=== PATIENT | female | born 1960 | race Caucasian/White ===

== ENCOUNTER 2022-02-16 12:27 | Outpatient (CLI) | payer BC | END 2022-02-16 12:28 | disposition home or self-care (01) | LOC: BICCT 12:27 | PROVIDERS: ATTEND Internal Medicine | DX: R35.0 Frequency of micturition (principal); R31.0 Gross hematuria; R10.9 Unspecified abdominal pain | CPT/HCPCS: 74176 ==

== ENCOUNTER 2022-05-28 07:55 | Outpatient (CLI) | payer BC | END 2022-05-28 07:56 | disposition home or self-care (01) | LOC: BICCT 07:55 | PROVIDERS: ATTEND Urology | DX: R31.0 Gross hematuria (principal); Z87.891 Personal history of nicotine dependence | CPT/HCPCS: 74178; 82565 ==